=== PATIENT | male | born 1990 | race Caucasian/White ===

== ENCOUNTER 2017-02-28 20:51 | Emergency (ER) | payer OTHER ==
[2017-02-28 20:59] VITALS: BP 141/107
[2017-02-28] MEDS ORDERED: LORazepam 2 MG/ML MDV IVPUSH ONE (21:02)
[2017-02-28] MEDS ORDERED: Glucagon,Human Recombinant 1 MG Vial IVPUSH ONE (21:02)
[2017-02-28] MEDS ORDERED: Sodium Chloride 0.9% 10 ML Syringe FLUSH PRN (21:02)
--- NOTE | 2017-02-28 21:08 | EDM.PDOC ---
ED HPI GENERAL MEDICAL PROBLEM - General Chief Complaint: ENT Problem Stated Complaint: FOOD LODGED IN THROAT Time Seen by Provider: 02/28/17 20:58 Source of Information: Reports: Patient History Limitations: Reports: No Limitations - History of Present Illness INITIAL COMMENTS - FREE TEXT/NARRATIVE: The patient presents with a food bolus in his esophagus. He was eating steak tonight and it got stuck. He cannot drink any fluids. It comes right back up. He had this happen once last year in December where he came in to be evaluated. He was given ativan and glucagon and it passed. He had it happen a time before that but he did not need to be evaluated. He denies chest pain or abdominal pain. Onset: Sudden Duration: Minutes: Location: Reports: Other (Esophagus) Quality: Reports: Pressure Severity: Moderate Improves with: Reports: None Worsens with: Reports: None Context: Reports: Activity (He was eating steak) Associated Symptoms: Reports: No Other Symptoms - Related Data Allergies Allergy/AdvReac Type Severity Reaction Status Date / Time No Known Allergies Allergy Verified 12/31/15 21:01 Home Meds: Home Meds . [No Known Home Meds] 12/31/15 [History] Past Medical History Psychiatric History: Reports: ADHD Social & Family History - Family History Family Medical History: Noncontributory - Tobacco Use Smoking Status *Q: Never Smoker - Recreational Drug Use Recreational Drug Use: No ED ROS ENT - Review of Systems Review Of Systems: See Below Constitutional: Reports: No Symptoms HEENT: Reports: Other (Food bolus stuck in throat) Respiratory: Reports: No Symptoms Cardiovascular: Reports: No Symptoms Endocrine: Reports: No Symptoms GI/Abdominal: Reports: No Symptoms : Reports: No Symptoms Musculoskeletal: Reports: No Symptoms Skin: Reports: No Symptoms ED EXAM, ENT - Physical Exam Exam: See Below Exam Limited By: No Limitations General Appearance: Alert, No Apparent Distress Ears: Normal External Exam Nose: Normal Inspection Head: Atraumatic, Normocephalic Neck: Normal Inspection Respiratory/Chest: No Respiratory Distress, Lungs Clear, Normal Breath Sounds Cardiovascular: Regular Rate, Rhythm, No Edema, No Murmur GI/Abdominal: Soft, Non-Tender, No Organomegaly, No Mass Extremities: Normal Inspection Course - Vital Signs Last Recorded V/S: Last Vital Signs Temp 97.0 F 02/28/17 20:58 Pulse 63 02/28/17 20:58 Resp 20 02/28/17 20:58 BP 141/107 H 02/28/17 20:58 Pulse Ox 99 02/28/17 20:58 - Orders/Labs/Meds Orders: Active Orders 24 hr Category Date Time Status Peripheral IV Care [RC] . DIRECTED Care 02/28/17 21:02 Active Lactated Ringers [Ringers, Lactated] 1,000 ml Med 02/28/17 21:15 Active IV ASDIRECTED Sodium Chloride 0.9% [Saline Flush] Med 02/28/17 21:02 Active 10 ml FLUSH ASDIRECTED PRN Peripheral IV Insertion Adult [OM.PC] Routine Oth 02/28/17 21:02 Ordered Medication Orders Lactated Ringer's (Ringers, Lactated) 1,000 mls @ 150 mls/hr IV ASDIRECTED KLEBER Last Admin: 02/28/17 21:14 Dose: 150 mls/hr Sodium Chloride (Saline Flush) 10 ml FLUSH ASDIRECTED PRN PRN Reason: Keep Vein Open Last Admin: 02/28/17 21:17 Dose: 10 ml Meds: Medications Generic Name Dose Route Start Last Admin Trade Name Freq PRN Reason Stop Dose Admin Lactated Ringer's 1,000 mls @ 150 mls/hr 02/28/17 21:15 02/28/17 21:14 Ringers, Lactated IV 150 mls/hr ASDIRECTED KLEBER Administration Sodium Chloride 10 ml 02/28/17 21:02 02/28/17 21:17 Saline Flush FLUSH 10 ml ASDIRECTED PRN Administration Keep Vein Open Discontinued Medications Generic Name Dose Route Start Last Admin Trade Name Freq PRN Reason Stop Dose Admin Glucagon 1 mg 02/28/17 21:02 02/28/17 21:19 Glucagen IVPUSH 02/28/17 21:03 1 mg ONETIME ONE Administration Lorazepam 1 mg 02/28/17 21:02 02/28/17 21:14 Ativan IVPUSH 02/28/17 21:03 1 mg ONETIME ONE Administration - Re-Assessments/Exams Free Text/Narrative Re-Assessment/Exam: 02/28/17 21:07 I ordered an IV LR at 150mL/hr, ativan 1mg IV, and glucagon 1mg IV. 02/28/17 22:12 He drank some coke and it passed. I will discharge him home and follow up with Dr Foss. Departure - Departure Time of Disposition: 22:15 Disposition: Home, Self-Care 01 Condition: Good Clinical Impression: Impacted esophageal foreign body Qualifiers: Encounter type: initial encounter Qualified Code(s): T18.108A - Unspecified foreign body in esophagus causing other injury, initial encounter - Discharge Information Referrals: Roger Foss MD [Physician] - 1 Week Forms: ED Department Discharge Additional Instructions: Eat a soft diet for the next [address] Foss's office to make an appointment. Please return if you are worse. - My Orders Last 24 Hours: My Active Orders 02/28/17 21:02 Peripheral IV Care [RC] . DIRECTED Sodium Chloride 0.9% [Saline Flush] 10 ml FLUSH ASDIRECTED PRN Peripheral IV Insertion Adult [OM.PC] Routine 02/28/17 21:15 Lactated Ringers [Ringers, Lactated] 1,000 ml IV ASDIRECTED - Assessment/Plan Last 24 Hours: My Active Orders 02/28/17 21:02 Peripheral IV Care [RC] . DIRECTED Sodium Chloride 0.9% [Saline Flush] 10 ml FLUSH ASDIRECTED PRN Peripheral IV Insertion Adult [OM.PC] Routine 02/28/17 21:15 Lactated Ringers [Ringers, Lactated] 1,000 ml IV ASDIRECTED
[2017-02-28] MEDS ORDERED: Lactated Ringers 1,000 ML IV SCH (21:15)
== END 2017-02-28 22:35 | disposition home or self-care (01) ==
LOC: JD.ED 20:51
DX: T18.198A Other foreign object in esophagus causing other injury, initial encounter (principal)
CPT/HCPCS: 96361; 96374; 96375; 99283; J1610; J2060; J7050; J7120; 99284

== ENCOUNTER 2017-11-02 04:07 | Emergency (ER) | payer OTHER ==
[2017-11-02 04:15] VITALS: BP 157/105
[2017-11-02] MEDS ORDERED: Amoxicillin/Clavulanate K 500-125 MG Tab PO ONE (04:26)
[2017-11-02] MEDS ORDERED: Acetaminophen/oxyCODONE 325-5 MG Tab PO ONE (04:27)
[2017-11-02] MEDS ORDERED: Ondansetron 4 MG Tab.DIS PO ONE (04:27)
--- NOTE | 2017-11-02 04:32 | EDM.PDOC ---
ED HPI GENERAL MEDICAL PROBLEM - General Chief Complaint: ENT Problem Stated Complaint: COUGH EAR PAIN Time Seen by Provider: 11/02/17 04:18 Source of Information: Reports: Patient, Family (spouse) History Limitations: Reports: No Limitations - History of Present Illness INITIAL COMMENTS - FREE TEXT/NARRATIVE: 27-year-old male attends the ED due to severe pain left ear. This predated by a sore throat for the last 3 days and clogged up nose. Physical postnasal drip which is causing some degree of cough and sputum production. He did not feel he is coughing primarily however. His weight has been ill with cough and flulike symptoms for the last week. He still has his tonsils in place. Remember the last time that he would've had an ear infection. No drainage from the ear has been appreciated. His primarily in the left ear. It is also very painful to swallow. Onset: Gradual Onset Date: 10/30/17 (Sore throat started 3 days ago. Her pain developed overnight.) Duration: Day(s): Location: Reports: Face (Left earache sore throat) Quality: Reports: Burning, Sharp, Stabbing Severity: Severe (Pain is 8 out of 10.) Improves with: Reports: None Worsens with: Reports: Other. Denies: Movement Context: Reports: Sick Contact. Denies: Activity, Exercise (Swallowing makes it much worse), Lifting, Trauma, Other (If is been sick with upper respiratory tract infection) Associated Symptoms: Reports: Cough, Fever/Chills, Loss of Appetite, Malaise. Denies: No Other Symptoms, Confusion (Off mainly secondary postnasal drip), Chest Pain, cough w sputum, Diaphoresis, Headaches, Nausea/Vomiting, Rash, Seizure, Shortness of Breath, Syncope, Weakness Treatments IN HOME AIDE: Reports: NSAIDS Throat Pain Score (Numeric/FACES): 2 - Related Data Allergies Allergy/AdvReac Type Severity Reaction Status Date / Time No Known Allergies Allergy Verified 12/31/15 21:01 Home Meds: Home Meds Amoxicillin/Clavulanate K [Augmentin 500-125 MG] 1 tab PO BID #16 tablet [Rx] Loratadine/Pseudoephedrine [Claritin-D 24 Hour Tablet] 1 each PO DAILY #5 tab.er.24h 11/02/17 [Rx] oxyCODONE HCl/Acetaminophen [Percocet 5-325 mg Tablet] 1 - 2 each PO Q4H PRN # 16 tablet 11/02/17 [Rx] Past Medical History - Past Health History Medical/Surgical History: Denies Medical/Surgical History Psychiatric History: Reports: ADHD Social & Family History - Family History Family Medical History: Noncontributory - Tobacco Use Smoking Status *Q: Never Smoker - Caffeine Use Caffeine Use: Reports: Soda - Recreational Drug Use Recreational Drug Use: No - Living Situation & Occupation Living situation: Reports: Occupation: Employed ED ROS ENT - Review of Systems Review Of Systems: See Below Constitutional: Reports: Fever, Chills, Malaise, Weakness, Fatigue, Decreased Appetite, Weight Loss HEENT: Reports: Ear Pain, Throat Pain (Left ear pain see history present illness her throat pain 3 days.) Respiratory: Reports: Cough Cardiovascular: Reports: No Symptoms (Out cough) Endocrine: Reports: No Symptoms GI/Abdominal: Reports: Decreased Appetite : Reports: No Symptoms Musculoskeletal: Reports: No Symptoms Skin: Reports: No Symptoms Neurological: Reports: No Symptoms Psychiatric: Reports: No Symptoms ED EXAM, ENT - Physical Exam Exam: See Below Exam Limited By: No Limitations General Appearance: Alert, WD/WN, Mild Distress Eye Exam: Bilateral Eye: Normal Inspection Ears: TM Bulging (Left), TM Erythema, TM Fluid (Left), Other (Right tympanic membrane is normal.). No: TM Blood Mouth/Throat: Pharyngeal Erythema (Diffuse and severe), Tonsillar Erythema, Tonsillar Exudates, Tonsillar Swelling Head: Atraumatic, Normocephalic Neck: Normal Inspection, Supple, Non-Tender, Full Range of Motion, Lymphadenopathy (L). No: Lymphadenopathy (R) Respiratory/Chest: No Respiratory Distress, Normal Breath Sounds, No Accessory Muscle Use. No: Respiratory Distress, Rales, Rhonchi, Wheezing Cardiovascular: Normal Peripheral Pulses, Regular Rate, Rhythm, No Edema, No Murmur Course - Vital Signs Last Recorded V/S: Last Vital Signs Temp 36.1 C 11/02/17 04:13 Pulse 85 11/02/17 04:13 Resp 18 11/02/17 04:13 BP 157/105 H 11/02/17 04:13 Pulse Ox 96 11/02/17 04:13 - Orders/Labs/Meds Meds: Medications Discontinued Medications Generic Name Dose Route Start Last Admin Trade Name Lizz PRN Reason Stop Dose Admin Amoxicillin/Clavulanate Potassium 1 tab 11/02/17 04:26 11/02/17 04:31 Augmentin 500 Mg\125 Mg PO 11/02/17 04:27 1 tab ONETIME ONE Administration Ondansetron HCl 4 mg 11/02/17 04:27 11/02/17 04:31 Zofran Odt PO 11/02/17 04:28 4 mg ONETIME ONE Administration Oxycodone/Acetaminophen 2 tab 11/02/17 04:27 11/02/17 04:31 Percocet 325-5 Mg PO 11/02/17 04:28 2 tab ONETIME ONE Administration - Radiology Interpretation Free Text/Narrative:: 27-year-old male presents the ED due to sore throat 3 days and now developing severe left ear pain overnight. Unable to sleep due to the intensity of the pain. Described as sharp stabbing and constant throbbing. They're painful to swallow. Has been running a temperature 100.1 202. He will call production. Clinically does not appear to have influenza. Examination reveals a an acute left otitis media and evidence of tonsillitis pharyngitis. Plan treated with Augmentin 500 mg by mouth per ora now he will try and take 2 for the tablets as the day goes on today to try and bring the infection under rapid control. Claritin-D 24-hour release 1 tablet every morning for the next 5 days. Motrin 600 mg every 6 hours needed for fever or pain and inflammation relief. Percocet tabs 5/325-- 2 tablets given by mouth now for acute pain relief.16 tabs provided. Discharged home with a prescription for 16 more tablets. Given a note to excuse him from work for the next 2 days. Departure - Departure Time of Disposition: 04:32 Disposition: Home, Self-Care 01 Condition: Fair Clinical Impression: Tonsillitis with exudate, Streptococcal sore throat Otitis media Qualifiers: Otitis media type: suppurative Chronicity: acute Laterality: left Recurrence: not specified as recurrent Spontaneous tympanic membrane rupture: without spontaneous rupture Qualified Code(s): H66.002 - Acute suppurative otitis media without spontaneous rupture of ear drum, left ear - Discharge Information Prescriptions: Amoxicillin/Clavulanate K [Augmentin 500-125 MG] 1 tab PO BID #16 tablet Loratadine/Pseudoephedrine [Claritin-D 24 Hour Tablet] 1 each PO DAILY #5 tab.er.24h oxyCODONE HCl/Acetaminophen [Percocet 5-325 mg Tablet] 1 - 2 each PO Q4H PRN # 16 tablet PRN Reason: pain relief. Instructions: Tonsillitis, [id number], Strep Throat, [id number], Otitis Media, Adult Referrals: PCP,None [Primary Care Provider] - Forms: ED Department Discharge, ED Return to Work/School Form Additional Instructions: Evaluation in emergency him tonight in regards to severe sore throat 3 days with associated fever and now development of an an acute left otitis media for ear infection. Examination of your throat show evidence shows evidence of streptococcal infection with strep pharyngitis and tonsillitis. Treatment is to be Motrin 600 mg every 6 hours to reduce fever pain and inflammation in both ear and throat. Percocet tabs 5/3/25 milligrams one or 2 every 4-6 hours needed for pain relief not controlled by Motrin alone for the next few days until the antibiotics begin to work well. Antibiotics to be Augmentin 500 mg twice daily for the next 8 days to clear up both ear infection and tonsillitis. He should expect marked improvement over the next 36-48 hours. She'll tablets provided in the ED I would suggest second tablet around noon today and 30 tablet before going to bed tonight. Suggest use of Claritin-D 24-hour release 1 tablet in the morning for the next 5 days to act as a decongestant to get the fluid out of your left middle ear cavity. Watch hours also are somewhat helpful. Also hot fluids such as coffee or soup help decongest the nose and ears. Note given to excuse her from the work place for today and tomorrow due to current illness. Follow-up with personal physician if not markedly improved in 48-72 hours time
== END 2017-11-02 04:45 | disposition home or self-care (01) ==
LOC: JD.ED 04:07
DX: H66.002 Acute suppurative otitis media without spontaneous rupture of ear drum, left ear (principal); J02.0 Streptococcal pharyngitis; Z79.899 Other long term (current) drug therapy
CPT/HCPCS: 99283; A9270

== ENCOUNTER 2018-03-10 12:00 | Day surgery (SDC) | payer OTHER ==
[2018-03-10] MEDS ORDERED: LORazepam 2 MG/ML SDV IVPUSH ONE (12:33)
[2018-03-10] MEDS ORDERED: Glucagon,Human Recombinant 1 MG Vial IVPUSH ONE (12:33)
--- NOTE | 2018-03-10 14:12 | EDM.PDOC ---
ED HPI GENERAL MEDICAL PROBLEM - General Chief Complaint: Gastrointestinal Problem Stated Complaint: FB STUCK IN THROAT Time Seen by Provider: 03/10/18 12:42 Source of Information: Reports: Patient History Limitations: Reports: No Limitations - History of Present Illness INITIAL COMMENTS - FREE TEXT/NARRATIVE: 27-year-old male presents for evaluation and treatment of an impacted food bolus. Patient was reportedly eating a roast beef sandwich at lunch. States that the food became stuck. He is now unable to swallow his secretions. He is reporting discomfort in the substernal area. No coughing, chest pain, shortness of breath or vomiting. Review patient's records shows he has been seen in the ER on 2 other occasions for this. Both episodes resolved with glucagon and Ativan. He has never had an EGD done. Throat Pain Score (Numeric/FACES): 3 - Related Data Allergies Allergy/AdvReac Type Severity Reaction Status Date / Time No Known Allergies Allergy Verified 03/10/18 12:08 Home Meds: Home Meds . [No Known Home Meds] 03/10/18 [History] Past Medical History - Past Health History Medical/Surgical History: Denies Medical/Surgical History Psychiatric History: Reports: ADHD Social & Family History - Family History Family Medical History: Noncontributory - Tobacco Use Smoking Status *Q: Never Smoker - Caffeine Use Caffeine Use: Reports: Soda - Recreational Drug Use Recreational Drug Use: No - Living Situation & Occupation Living situation: Reports: Occupation: Employed ED ROS GENERAL - Review of Systems Review Of Systems: See Below HEENT: Reports: Other (unable to swallow secreations, reports feeling of impacted food bolus) Respiratory: Denies: Shortness of Breath, Cough Cardiovascular: Denies: Chest Pain GI/Abdominal: Denies: Vomiting ED EXAM, GI/ABD - Physical Exam Exam: See Below Exam Limited By: No Limitations General Appearance: Alert, WD/WN, No Apparent Distress Ears: Normal External Exam Nose: Normal Inspection Throat/Mouth: Normal Inspection, Normal Lips, Normal Voice, No Airway Compromise Respiratory/Chest: No Respiratory Distress, Lungs Clear, Normal Breath Sounds, Chest Non-Tender Cardiovascular: Normal Peripheral Pulses, Regular Rate, Rhythm, No Murmur Neurological: Alert, Oriented, Normal Cognition Psychiatric: Normal Affect, Normal Mood Skin Exam: Warm, Normal Color Course - Vital Signs Last Recorded V/S: Last Vital Signs Temp 97.2 F 03/10/18 16:40 Pulse 77 03/10/18 16:40 Resp 18 03/10/18 16:40 BP 129/83 03/10/18 16:40 Pulse Ox 98 03/10/18 16:40 - Orders/Labs/Meds Orders: Active Orders 24 hr Category Date Time Status Admission Status [Patient Status] [ADT] Routine ADT 03/10/18 14:13 Active Communication Order [RC] ROUTINE Care 03/10/18 15:28 Active Cooling Warming Measures [RC] ASDIRECTED Care 03/10/18 15:28 Active Notify Provider [RC] ASDIRECTED Care 03/10/18 15:28 Active Oxygen Therapy [RC] ASDIRECTED Care 03/10/18 15:28 Active Patient to Empty Bladder [RC] ASDIRECTED Care 03/10/18 14:35 Active Pulse Oximetry [RC] ASDIRECTED Care 03/10/18 15:28 Active Ready for Discharge [RC] PER UNIT ROUTINE Care 03/10/18 15:18 Active Verify Patient Consent Obtain [RC] ASDIRECTED Care 03/10/18 14:36 Active Vital Signs [RC] Q15M Care 03/10/18 15:29 Active Schedule Procedure [COMM] Stat Oth 03/10/18 14:13 Ordered Schedule Procedure [COMM] Urgent Oth 03/10/18 14:35 Ordered Resuscitation Status Routine Resus Stat 03/10/18 14:35 Ordered Meds: Medications Discontinued Medications Generic Name Dose Route Start Last Admin Trade Name Jean Carlosq PRN Reason Stop Dose Admin Dexamethasone Confirm 03/10/18 14:39 Dexamethasone Administered 03/10/18 14:40 Dose 4 mg .ROUTE .STK-MED ONE Diphenhydramine HCl 25 mg 03/10/18 15:29 Benadryl IVPUSH Q6H PRN Pruritis Fentanyl Confirm 03/10/18 14:34 Sublimaze Administered 03/10/18 14:35 Dose 100 mcg .ROUTE .STK-MED ONE Fentanyl 50 mcg 03/10/18 15:29 Sublimaze IVPUSH Q5M PRN Pain Glucagon 1 mg 03/10/18 12:33 03/10/18 12:41 Glucagen IVPUSH 03/10/18 12:34 1 mg ONETIME ONE Administration Lactated Ringer's Confirm 03/10/18 14:27 Ringers, Lactated Administered 03/10/18 14:28 Dose 1,000 mls @ as directed .ROUTE .STK-MED ONE Sodium Chloride 1,000 mls @ 125 mls/hr 03/10/18 14:45 Normal Saline IV ASDIRECTED KLEBER Lidocaine HCl Confirm 03/10/18 14:39 Xylocaine-Mpf 1% Administered 03/10/18 14:40 Dose 4 mls @ as directed .ROUTE .STK-MED ONE Lorazepam 1 mg 03/10/18 12:33 03/10/18 12:40 Ativan IVPUSH 03/10/18 12:34 1 mg ONETIME ONE Administration Meperidine HCl 12.5 mg 03/10/18 15:29 Demerol IVPUSH ONETIME PRN Shivering Midazolam HCl Confirm 03/10/18 14:34 Versed 1 Mg/Ml Administered 03/10/18 14:35 Dose 2 mg .ROUTE .STK-MED ONE Ondansetron HCl Confirm 03/10/18 14:39 Zofran Administered 03/10/18 14:40 Dose 4 mg .ROUTE .STK-MED ONE Ondansetron HCl 4 mg 03/10/18 15:29 Zofran IVPUSH ONETIME PRN Nausea/Vomiting Propofol Confirm 03/10/18 14:34 Diprivan 20 Ml Administered 03/10/18 14:35 Dose 200 mg .ROUTE .STK-MED ONE Succinylcholine Chloride Confirm 03/10/18 14:39 Succinylcholine In Ns Pf Administered 03/10/18 14:40 Dose 100 mg .ROUTE .STK-MED ONE - Re-Assessments/Exams Free Text/Narrative Re-Assessment/Exam: 03/10/18 14:19 Glucagon and Ativan have been unsuccessful. Continues to spit up secretions. Discussed case with Dr. Foss. He will come into the ER and examine the patient and plan taken to the OR for removal of impacted food bolus. Departure - Departure Time of Disposition: 14:30 Disposition: DC/Tfer to Critical Access 66 Condition: Fair Clinical Impression: Food impaction of esophagus Qualifiers: Encounter type: initial encounter Qualified Code(s): T18.128A - Food in esophagus causing other injury, initial encounter - Discharge Information - My Orders Last 24 Hours: My Active Orders 03/10/18 14:13 Admission Status [Patient Status] [ADT] Routine Schedule Procedure [COMM] Stat - Assessment/Plan Last 24 Hours: My Active Orders 03/10/18 14:13 Admission Status [Patient Status] [ADT] Routine Schedule Procedure [COMM] Stat
[2018-03-10] MEDS ORDERED: Lactated Ringers 1,000 ML ONE (14:27)
--- NOTE | 2018-03-10 14:29 | PCM.PREANE ---
Preanesthetic Assessment - Anesthesia/Transfusion/Family Hx Anesthesia History: Prior Anesthesia Without Reaction Family History of Anesthesia Reaction: No Transfusion History: No Prior Transfusion(s) - Review of Systems General: No Symptoms Pulmonary: No Symptoms Cardiovascular: No Symptoms Gastrointestinal: No Symptoms Neurological: No Symptoms Other: Reports: None - Physical Assessment NPO Status Date: 03/10/18 NPO Status Time: 11:30 O2 Sat by Pulse Oximetry: 98 Respiratory Rate: 16 Vital Signs: Last Vital Signs Temp 36.5 C 03/10/18 12:05 Pulse 92 03/10/18 12:05 Resp 16 03/10/18 12:05 BP 164/89 H 03/10/18 12:05 Pulse Ox 98 03/10/18 12:05 Height: 1.78 m Weight: 86.183 kg ASA Class: 1 Mental Status: Alert & Oriented x3 Dentition: Reports: Broken Tooth/Teeth (top left molar cracked ) Thyro-Mental Finger Breadths: 3 Mouth Opening Finger Breadths: 3 ROM/Head Extension: Full Lungs: Clear to Auscultation, Normal Respiratory Effort Cardiovascular: Regular Rate, Regular Rhythm - Allergies Allergies/Adverse Reactions: Allergies Allergy/AdvReac Type Severity Reaction Status Date / Time No Known Allergies Allergy Verified 03/10/18 12:08 - Blood Blood Available: No Product(s) Available: None - Anesthesia Plan Pre-Op Medication Ordered: None - Acknowledgements Anesthesia Type Planned: General Anesthesia Pt an Appropriate Candidate for the Planned Anesthesia: Yes Alternatives and Risks of Anesthesia Discussed w Pt/Guardian: Yes Pt/Guardian Understands and Agrees with Anesthesia Plan: Yes PreAnesthesia Questionnaire - Past Health History Medical/Surgical History: Denies Medical/Surgical History Psychiatric History: Reports: ADHD - SUBSTANCE USE Smoking Status *Q: Never Smoker Second Hand Smoke Exposure: No Recreational Drug Use History: No - HOME MEDS Home Medications: Home Meds . [No Known Home Meds] 03/10/18 [History] - CURRENT (IN HOUSE) MEDS Current Meds: Current Medications Discontinued Medications Glucagon (Glucagen) 1 mg IVPUSH ONETIME ONE Stop: 03/10/18 12:34 Last Admin: 03/10/18 12:41 Dose: 1 mg Lorazepam (Ativan) 1 mg IVPUSH ONETIME ONE Stop: 03/10/18 12:34 Last Admin: 03/10/18 12:40 Dose: 1 mg
[2018-03-10] MEDS ORDERED: fentaNYL 100 MCG/2 ML SDV ONE (14:34)
[2018-03-10] MEDS ORDERED: Propofol 200 MG/20 ML SDV ONE (14:34)
[2018-03-10] MEDS ORDERED: Midazolam 1 MG/ML 2 ML SDV ONE (14:34)
[2018-03-10] MEDS ORDERED: Dexamethasone 4 MG/ML SDV ONE (14:39)
[2018-03-10] MEDS ORDERED: Ondansetron 4 MG/2 ML SDV ONE (14:39)
[2018-03-10] MEDS ORDERED: Succinylcholine/Normal Saline 100 MG/5 ML Syringe ONE (14:39)
[2018-03-10] MEDS ORDERED: Lidocaine 1% 4 ML ONE (14:39)
--- NOTE | 2018-03-10 14:41 | PCM.HP ---
H&P History of Present Illness - General Date of Service: 03/10/18 Admit Problem/Dx: Admission Diagnosis/Problem Admission Diagnosis/Problem Foreign body in esophagus - History of Present Illness Initial Comments - Free Text/Narative: 27-year-old male was in his usual state of excellent health until about 2 hours ago when he ate a roast beef sandwich became stuck in his esophagus. Since that time he's been unable to swallow his saliva and is regurgitating. He has no neck pain or chest pain at this time. He doesn't give a classic history of reflux symptoms it on the other hand he said he's had peak meat stick in his esophagus on 2 previous occasions in the last one was about a year ago. He's never had a previous upper endoscopy. He was seen by staff here in the ED who medically tried to relieve the obstruction without success and I was called to evaluate him for endoscopy. Throat Pain Score (Numeric/FACES): 3 - Related Data Allergies/Adverse Reactions: Allergies Allergy/AdvReac Type Severity Reaction Status Date / Time No Known Allergies Allergy Verified 03/10/18 12:08 Home Medications: Home Meds . [No Known Home Meds] 03/10/18 [History] Past Medical History - Past Health History Medical/Surgical History: Denies Medical/Surgical History Psychiatric History: Reports: ADHD Social & Family History - Family History Family Medical History: Noncontributory - Tobacco Use Smoking Status *Q: Never Smoker Second Hand Smoke Exposure: No - Caffeine Use Caffeine Use: Reports: Soda - Recreational Drug Use Recreational Drug Use: No - Living Situation & Occupation Living situation: Reports: Occupation: Employed H&P Review of Systems - Review of Systems: Review Of Systems: ROS reveals no pertinent complaints other than HPI. Exam - Exam Exam: See Below - Vital Signs Vital Signs: Last Vital Signs Temp 36.5 C 03/10/18 12:05 Pulse 92 03/10/18 12:05 Resp 16 03/10/18 14:31 BP 164/89 H 03/10/18 12:05 Pulse Ox 98 03/10/18 14:31 Weight: 86.183 kg - Exam General: Alert, Oriented, Cooperative HEENT: EOMI, Hearing Intact Neck: Supple, Trachea Midline, Full Range of Motion Lungs: Clear to Auscultation, Normal Respiratory Effort Cardiovascular: Regular Rate, Regular Rhythm, Normal S1, Normal S2 GI/Abdominal Exam: Soft, Non-Tender (Male) Exam: Deferred Rectal (Males) Exam: Deferred Back Exam: Normal Inspection Skin: Warm, Dry, Intact Neuro Extensive - Mental Status: Alert, Oriented x3, Normal Mood/Affect, Normal Cognition Psychiatric: Alert, Normal Affect, Normal Mood - Problem List (1) Food impaction of esophagus SNOMED Code(s): 4591782, [id number] ICD Code: T18.128A - FOOD IN ESOPHAGUS CAUSING OTHER INJURY, INITIAL ENCOUNTER Status: Acute Priority: High Current Visit: No Qualifiers: Encounter type: initial encounter Qualified Code(s): T18.128A - Food in esophagus causing other injury, initial encounter Problem List Initiated/Reviewed/Updated: Yes Orders Last 24hrs: Active Orders 24 hr Category Date Time Status Admission Status [Patient Status] [ADT] Routine ADT 03/10/18 14:13 Active Patient to Empty Bladder [RC] ASDIRECTED Care 03/10/18 14:35 Ordered Verify Patient Consent Obtain [RC] ASDIRECTED Care 03/10/18 14:36 Ordered Nothing Per Oral Diet [DIET] Diet 03/10/18 Lunch Ordered Sodium Chloride 0.9% @ 125 MLS/HR (1000ml) Med 03/10/18 14:45 Ordered Sodium Chloride 0.9% [Normal Saline] 1,000 ml IV ASDIRECTED Schedule Procedure [COMM] Stat Oth 03/10/18 14:13 Ordered Schedule Procedure [COMM] Urgent Oth 03/10/18 14:35 Ordered Resuscitation Status Routine Resus Stat 03/10/18 14:35 Ordered Assessment/Plan Comment:: Esophageal meat impaction refractory to medical therapy. Would benefit from endoscopy with disimpaction. Plan: Endoscopic esophageal meat disimpaction. Esophageal biopsies as well. The benefits and risks of the procedure were explained to the patient as well as the alternatives. He wants to proceed as soon as possible.
[2018-03-10] MEDS ORDERED: Sodium Chloride 0.9% 1,000 ML IV SCH (14:45)
--- NOTE | 2018-03-10 15:25 | PCM.OPNOTE ---
- General Post-Op/Procedure Note Date of Surgery/Procedure: 03/10/18 Operative Procedure(s): Endoscopic esophageal meat disimpaction with GE junction biopsy and esophageal body biopsy at 20 cm Findings: Roast beef chips within the body of the esophagus. There appeared to be some slight trachealization of the esophagus which is suggestive of eosinophilic esophagitis.. There were no eugene strictures or stenoses seen. There was no evidence of chronic esophagitis. There was a large amount of food within the stomach. The duodenum was grossly normal. Pre Op Diagnosis: Esophageal meat impaction Post-Op Diagnosis: 1. Same. 2. Rule out eosinophilic esophagitis Anesthesia Technique: MAC, Moderate Sedation Primary Surgeon: Roger Foss Pathology: GE junction biopsy and esophageal biopsy at 20 cm EBL in mLs: 0 Complications: None Condition: Stable Free Text/Narrative:: After adequate general endotracheal tube anesthesia was obtained a lubricated upper endoscope was inserted through a bite-block easily into the esophagus. The scope was advanced under direct vision and quickly ran into slices of beef impacting the distal esophagus. There was a fair amount of saliva just above this. I aspirated the saliva. I then able was able to navigate the scope around the roast beef into the body of the stomach. This pushed about half of the katherine beef into the stomach. The other half was then pushed into the stomach after withdrawing the scope somewhat and proceeding forward once again. Within the stomach there was a large amount of food and saliva. The scope was then introduced towards the antrum and through the pylorus and then into the duodenum. These areas were endoscopically normal however fine mucosal detail couldn't be seen because of the food. In the retroflexed view there is a large amount of food within the stomach. I couldn't see a hiatal hernia. The scope was then withdrawn to the GE junction where there were no eugene stenoses valves or rings. I took a random biopsy for histologic review despite the absence of inflammatory changes. I then withdrew the scope to the body of the esophagus and then irrigated out the remaining small pieces of roast beef. This was done until the esophagus was clear. I then biopsied one of the suspicious rings for histologic review. Air was removed as I finished the procedure which he tolerated well. Pack Room Operator photographs were taken for the patient and for the medical record. There were no complications.
--- NOTE | 2018-03-10 15:27 | PCM.POSTAN ---
POST ANESTHESIA ASSESSMENT - MENTAL STATUS Mental Status: Somnolent - VITAL SIGNS Pulse Rate: 75 SaO2: 99 Resp Rate: 14 Blood Pressure: 142/94 Temperature: 36.6 C - RESPIRATORY Respiratory Status: Respiratory Rate WNL, Airway Patent, O2 Saturation Stable - CARDIOVASCULAR CV Status: Pulse Rate WNL, Blood Pressure Stable - GASTROINTESTINAL GI Status: No Symptoms - PAIN Pain Score: 0 - POST OP HYDRATION Hydration Status: Adequate & Stable
[2018-03-10] MEDS ORDERED: Ondansetron 4 MG/2 ML SDV IVPUSH PRN (15:29)
[2018-03-10] MEDS ORDERED: diphenhydrAMINE 50 MG/ML SDV IVPUSH PRN (15:29)
[2018-03-10] MEDS ORDERED: Meperidine PF 50 MG/ML Syringe IVPUSH PRN (15:29)
[2018-03-10] MEDS ORDERED: fentaNYL 100 MCG/2 ML SDV IVPUSH PRN (15:29)
--- NOTE | 2018-03-10 15:37 | PCM48HPAN ---
Post Anesthesia Note - EVALUATION WITHIN 48HRS OF ANESTHETIC Vital Signs in Normal Range: Yes Patient Participated in Evaluation: Yes Respiratory Function Stable: Yes Airway Patent: Yes Cardiovascular Function Stable: Yes Hydration Status Stable: Yes Pain Control Satisfactory: Yes Nausea and Vomiting Control Satisfactory: Yes Mental Status Recovered: Yes
[2018-03-10 16:52] VITALS: BP 129/83
== END 2018-03-10 16:48 | disposition home or self-care (01) ==
LOC: JD.ED 12:00 → JD.SDS 14:15
PROVIDERS: ATTEND Surgery
DX: T18.128A Food in esophagus causing other injury, initial encounter (principal); K20.0 Eosinophilic esophagitis; F90.9 Attention-deficit hyperactivity disorder, unspecified type; X58.XXXA Exposure to other specified factors, initial encounter
CPT/HCPCS: 43239; 43247; 96374; 96375; 99284; J0330; J1100; J1610; J2060; J2250; J2405; J2704; J3010; 00731; J2001

== ENCOUNTER 2021-07-22 12:04 | Emergency (ER) | payer OTHER ==
[2021-07-22 12:28] VITALS: BP 134/87; PULSE 90
[2021-07-22 13:04] LABS: CORONAVIRUS COVID-19 NAA NEGATIVE (NEGATIVE)
--- NOTE | 2021-07-22 13:09 | EDM.PDOC ---
ED HPI GENERAL MEDICAL PROBLEM - General Chief Complaint: Respiratory Problem Stated Complaint: SOB\VOMITING Time Seen by Provider: 07/22/21 12:18 Source of Information: Reports: Patient, RN Notes Reviewed History Limitations: Reports: No Limitations - History of Present Illness INITIAL COMMENTS - FREE TEXT/NARRATIVE: Patient is a 30-year-old male presenting to the emergency department with complaints of diarrhea, vomiting, shortness of breath. Reports that around 330 this morning he awoke with diarrhea. He is also had 2 episodes of diarrhea. Reports that around 1130 this morning he was lying down he began to feel short of breath. States it was difficult to take a full breath. He also had tingling in his hands and feet. This lasted approximately 1 hour, but resolved while he was in the waiting room. He denies any chest pain, fever, cough, or abdominal pain. He received 2 doses of [employer] vaccination in December. - Related Data Allergies Allergy/AdvReac Type Severity Reaction Status Date / Time No Known Allergies Allergy Verified 03/10/18 12:08 Home Meds: Home Meds Metoprolol Succinate 25 mg PO DAILY 07/22/21 [History] Ondansetron [Zofran ODT] 4 mg PO Q6H PRN #10 tab.dis 07/22/21 [Rx] Past Medical History - Past Health History Medical/Surgical History: Denies Medical/Surgical History Cardiovascular History: Reports: Hypertension Psychiatric History: Reports: ADHD - Infectious Disease History Infectious Disease History: Reports: None Social & Family History - Family History Family Medical History: No Pertinent Family History - Tobacco Use Tobacco Use Status *Q: Never Tobacco User - Caffeine Use Caffeine Use: Reports: Coffee, Energy Drinks, Soda - Recreational Drug Use Recreational Drug Use: No - Living Situation & Occupation Living situation: Reports: Occupation: Employed ED ROS GENERAL - Review of Systems Review Of Systems: See Below Constitutional: Reports: No Symptoms. Denies: Fever, Chills, Weakness HEENT: Reports: No Symptoms Respiratory: Reports: Shortness of Breath. Denies: Wheezing, Cough Cardiovascular: Reports: No Symptoms. Denies: Chest Pain, Lightheadedness, Palpitations Endocrine: Reports: No Symptoms GI/Abdominal: Reports: Diarrhea, Vomiting. Denies: Abdominal Pain : Reports: No Symptoms Musculoskeletal: Reports: No Symptoms Skin: Reports: No Symptoms Neurological: Reports: No Symptoms. Denies: Confusion, Dizziness, Headache Psychiatric: Reports: No Symptoms Hematologic/Lymphatic: Reports: No Symptoms Immunologic: Reports: No Symptoms ED EXAM, GENERAL - Physical Exam Exam: See Below Exam Limited By: No Limitations General Appearance: Alert, WD/WN, No Apparent Distress Respiratory/Chest: No Respiratory Distress, Lungs Clear, Normal Breath Sounds, No Accessory Muscle Use, Chest Non-Tender Cardiovascular: Normal Peripheral Pulses, Regular Rate, Rhythm, No Edema, No Gallop, No JVD, No Murmur, No Rub GI/Abdominal: Normal Bowel Sounds, Soft, Non-Tender, No Organomegaly, No Distention, No Abnormal Bruit, No Mass Neurological: Alert, Oriented, CN II-XII Intact, Normal Cognition, Normal Gait, Normal Reflexes, No Motor/Sensory Deficits Psychiatric: Normal Affect, Normal Mood Skin Exam: Warm, Dry, Intact, Normal Color, No Rash #1 Interpretation EKG Date: 07/22/21 Time: 12:38 Rhythm: NSR Rate (Beats/Min): 104 [place]: Normal P-Wave: Present QRS: Normal ST-T: Normal QT: Normal Course - Vital Signs Last Recorded V/S: Last Vital Signs Temp 98.1 F 07/22/21 12:26 Pulse 90 07/22/21 12:26 Resp 20 07/22/21 12:26 BP 134/87 07/22/21 12:26 Pulse Ox 96 07/22/21 12:26 - Orders/Labs/Meds Labs: Laboratory Tests 07/22/21 07/22/21 07/22/21 Range/Units 12:15 12:45 12:45 WBC 11.73 H (4.23-9.07) K/mm3 RBC 5.96 (4.63-6.08) M/mm3 Hgb 17.6 H (13.7-17.5) gm/dl Hct 51.5 H (40.1-51.0) % MCV 86.4 (79.0-92.2) fl MCH 29.5 (25.7-32.2) pg MCHC 34.2 (32.2-35.5) g/dl RDW Std Deviation 42.1 (35.1-43.9) fL Plt Count 294 (163-337) K/mm3 MPV 9.4 (9.4-12.3) fl Neut % (Auto) 88.9 H (34.0-67.9) % Lymph % (Auto) 3.3 L (21.8-53.1) % Benzie % (Auto) 6.0 (5.3-12.2) % Eos % (Auto) 1.4 (0.8-7.0) Baso % (Auto) 0.2 (0.1-1.2) % Neut # (Auto) 10.43 H (1.78-5.38) K/mm3 Lymph # (Auto) 0.39 L (1.32-3.57) K/mm3 Benzie # (Auto) 0.70 (0.30-0.82) K/mm3 Eos # (Auto) 0.17 (0.04-0.54) K/mm3 Baso # (Auto) 0.02 (0.01-0.08) K/mm3 D-Dimer, Quantitative < 0.19 L (0.19-0.50) mg/L Sodium (136-145) mEq/L Potassium (3.5-5.1) mEq/L Chloride (98-107) mEq/L Carbon Dioxide (21-32) mEq/L Anion Gap (5-15) BUN (7-18) mg/dL Creatinine (0.7-1.3) mg/dL Est Cr Clr Drug Dosing mL/min Estimated GFR (MDRD) (>60) mL/min BUN/Creatinine Ratio (14-18) Glucose (70-99) mg/dL Calcium (8.5-10.1) mg/dL Total Bilirubin (0.2-1.0) mg/dL AST (15-37) U/L ALT (16-63) U/L Alkaline Phosphatase (46-116) U/L Troponin I (0.00-0.056) ng/mL Total Protein (6.4-8.2) g/dl Albumin (3.4-5.0) g/dl Globulin gm/dL Albumin/Globulin Ratio (1-2) Influenza Type A RNA Negative (NEGATIVE) Influenza Type B RNA Negative (NEGATIVE) SARS-CoV-2 RNA (CARI) Negative (NEGATIVE) 07/22/21 Range/Units 12:45 WBC (4.23-9.07) K/mm3 RBC (4.63-6.08) M/mm3 Hgb (13.7-17.5) gm/dl Hct (40.1-51.0) % MCV (79.0-92.2) fl MCH (25.7-32.2) pg MCHC (32.2-35.5) g/dl RDW Std Deviation (35.1-43.9) fL Plt Count (163-337) K/mm3 MPV (9.4-12.3) fl Neut % (Auto) (34.0-67.9) % Lymph % (Auto) (21.8-53.1) % Benzie % (Auto) (5.3-12.2) % Eos % (Auto) (0.8-7.0) Baso % (Auto) (0.1-1.2) % Neut # (Auto) (1.78-5.38) K/mm3 Lymph # (Auto) (1.32-3.57) K/mm3 Benzie # (Auto) (0.30-0.82) K/mm3 Eos # (Auto) (0.04-0.54) K/mm3 Baso # (Auto) (0.01-0.08) K/mm3 D-Dimer, Quantitative (0.19-0.50) mg/L Sodium 137 (136-145) mEq/L Potassium 4.1 (3.5-5.1) mEq/L Chloride 102 (98-107) mEq/L Carbon Dioxide 27 (21-32) mEq/L Anion Gap 12.1 (5-15) BUN 15 (7-18) mg/dL Creatinine 1.2 (0.7-1.3) mg/dL Est Cr Clr Drug Dosing 91.25 mL/min Estimated GFR (MDRD) > 60 (>60) mL/min BUN/Creatinine Ratio 12.5 L (14-18) Glucose 123 H (70-99) mg/dL Calcium 9.3 (8.5-10.1) mg/dL Total Bilirubin 1.0 (0.2-1.0) mg/dL AST 22 (15-37) U/L ALT 52 (16-63) U/L Alkaline Phosphatase 85 (46-116) U/L Troponin I < 0.017 (0.00-0.056) ng/mL Total Protein 8.7 H (6.4-8.2) g/dl Albumin 4.6 (3.4-5.0) g/dl Globulin 4.1 gm/dL Albumin/Globulin Ratio 1.1 (1-2) Influenza Type A RNA (NEGATIVE) Influenza Type B RNA (NEGATIVE) SARS-CoV-2 RNA (CARI) (NEGATIVE) - Re-Assessments/Exams Free Text/Narrative Re-Assessment/Exam: Patient is a 30-year-old male presenting to the emergency department with complaints of vomiting, diarrhea, and shortness of breath. Symptoms of diarrhea began around 0330 this morning with vomiting later in the morning. Around 1130 he sprints approxi-1 hour of shortness of breath which resolved while he was in the waiting room. He described it as being difficult to take a deep breath. He had some tingling in his hands and feet as well. Patient denies any symptoms at the time of my exam. Exam is unremarkable. Lung sounds are clear to auscultation. Vital signs on triage were normal. I have ordered blood work, EKG, chest x-ray, Covid/influenza testing. 07/22/21 14:29 Hematology significant for WBC minimally elevate 11.73. D-dimer and troponin are undetectably low. Covid and influenza are negative. Chest x-ray shows no acute abnormalities. EKG shows no evidence of acute ischemia. Results discussed with patient. Likely suffering from viral gastroenteritis. I will send prescription for Zofran for nausea. Discussed return precautions. Discharge instructions as documented. Departure - Departure Time of Disposition: 14:29 Disposition: Home, Self-Care 01 Condition: Good Clinical Impression: Viral gastroenteritis - Discharge Information *PRESCRIPTION DRUG MONITORING PROGRAM REVIEWED*: No *COPY OF PRESCRIPTION DRUG MONITORING REPORT IN PATIENT MACO: No Prescriptions: Ondansetron [Zofran ODT] 4 mg PO Q6H PRN #10 tab.dis PRN Reason: Nausea/Vomiting Instructions: Viral Gastroenteritis, Adult Referrals: Zane Talbot MD [Primary Care Provider] - Forms: ED Department Discharge Additional Instructions: Use Zofran as prescribed for nausea. Clear liquid diet for the next 24 to 72 hours and then advance as tolerated. You should develop any new or worsening symptoms of concern, please do not hesitate to return to the emergency department for reevaluation. Sepsis Event Note (ED) - Focused Exam Vital Signs: Vital Signs Temp Pulse Resp BP Pulse Ox 07/22/21 12:26 98.1 F 90 20 134/87 96
--- NOTE | 2021-07-22 13:57 | CR ---
Chest: Portable view of the chest was obtained. Comparison: No prior chest imaging is available. Heart size and mediastinum are normal. Lungs are clear with no acute parenchymal change. Bony structures show nothing acute. Impression: 1. Nothing acute is seen on portable chest x-ray. Diagnostic code #1
== END 2021-07-22 15:00 | disposition home or self-care (01) ==
LOC: JD.ED 12:04
DX: A08.4 Viral intestinal infection, unspecified (principal); I10 Essential (primary) hypertension; Z79.899 Other long term (current) drug therapy; Z20.822 Contact with and (suspected) exposure to COVID-19
CPT/HCPCS: 0240U; 36415; 71045; 80053; 84484; 85025; 85379; 93005; 99284

== ENCOUNTER 2021-11-04 20:32 | Day surgery (SDC) | payer OTHER ==
[2021-11-04] MEDS ORDERED: Glucagon,Human Recombinant 1 MG Vial IVPUSH ONE (21:38)
[2021-11-04] MEDS ORDERED: Sodium Chloride 0.9% 10 ML Syringe FLUSH PRN (21:39)
[2021-11-04] MEDS ORDERED: LORazepam 2 MG/ML SDV IVPUSH STA (22:18)
[2021-11-04] MEDS ORDERED: Diltiazem 50 MG/10 ML SDV IVPUSH STA (22:23)
[2021-11-04] MEDS ORDERED: Ondansetron 4 MG/2 ML SDV ONE (23:10)
[2021-11-04] MEDS ORDERED: fentaNYL 250 MCG/5 ML SDV ONE (23:10)
[2021-11-04] MEDS ORDERED: Midazolam 1 MG/ML 2 ML SDV ONE (23:10)
[2021-11-04] MEDS ORDERED: Propofol 200 MG/20 ML SDV ONE (23:10)
[2021-11-04] MEDS ORDERED: Lidocaine 1% 4 ML ONE (23:10)
[2021-11-04] MEDS ORDERED: Succinylcholine/Sod PF 100 MG/5 ML SYRINGE IV ONE (23:10)
[2021-11-04] MEDS ORDERED: Dexamethasone 4 MG/ML 5 ML MDV ONE (23:47)
[2021-11-04] MEDS ORDERED: fentaNYL 100 MCG/2 ML SDV IVPUSH PRN (23:58)
[2021-11-04] MEDS ORDERED: Ondansetron 4 MG/2 ML SDV IVPUSH PRN (23:58)
[2021-11-04] MEDS ORDERED: HYDROmorphone 0.5 MG/0.5 ML Syringe IVPUSH PRN (23:58)
[2021-11-05] MEDS ORDERED: ePHEDrine 50 MG/ML SDV ONE (00:09)
[2021-11-05 01:15] VITALS: BP 151/103; PULSE 89
== END 2021-11-05 05:55 | disposition home or self-care (01) ==
LOC: JD.ED 20:32 → JD.SDS 22:59 → JD.MS 11-05 01:57 → JD.SDS 11-05 05:55
PROVIDERS: ATTEND Surgery
DX: T18.128A Food in esophagus causing other injury, initial encounter (principal); K22.2 Esophageal obstruction; I10 Essential (primary) hypertension; K21.9 Gastro-esophageal reflux disease without esophagitis; Z98.890 Other specified postprocedural states
CPT/HCPCS: 43247; 96374; 96375; 99284; J0330; J1100; J1610; J2060; J2250; J2405; J2704; J3010; J3490; 00731; 99140; 99285

== ENCOUNTER 2023-08-03 22:44 | Inpatient (IN) | payer BC, OTHER ==
[2023-08-03] MEDS ORDERED: Sodium Chloride 0.9% 10 ML Syringe FLUSH PRN (22:53)
[2023-08-03 23:31] LABS: BASOPHILS ABSOLUTE AUTO 0.1 K/mm3 (0.0-0.2); BASOPHILS PERCENT AUTO 0.5 % (0.0-1.0); EOSINOPHILS ABSOLUTE AUTO 0.2 K/mm3 (0.0-0.4); EOSINOPHILS PERCENT AUTO 1.5 % (0.0-6.0); IMMATURE GRAN ABSOLUTE AUTO 0.05 K/mm3 (0.00-0.05); IMMATURE GRAN PERCENT AUTO 0.3 % (0.0-0.4); LYMPHOCYTES ABSOLUTE AUTO 1.2 K/mm3 (1.0-4.8); LYMPHOCYTES PERCENT AUTO 8.3 % (24.0-44.0); MEAN CORPUSCULAR HEMOGLOBIN 30.2 pg (28.0-32.0); MEAN CORPUSCULAR HGB CONC 35.4 g/dl (32.0-36.0); MEAN CORPUSCULAR VOLUME 85.3 fl (83.0-99.0); MEAN PLATELET VOLUME 9.1 fl (9.4-12.4); MONOCYTES ABSOLUTE AUTO 0.8 K/mm3 (0.0-0.8); MONOCYTES PERCENT AUTO 5.6 % (0.0-8.0); NEUTROPHILS ABSOLUTE AUTO 12.5 K/mm3 (1.8-7.7); NEUTROPHILS PERCENT AUTO 83.8 % (41.0-71.0); PLATELET COUNT,PLT 323 K/mm3 (150-400); RED BLOOD CELL COUNT 5.63 M/mm3 (4.52-5.90); WHITE BLOOD CELL COUNT,WBC 14.89 K/mm3 (3.9-11.3)
[2023-08-03 23:54] LABS: A/G RATIO 1.1 (1-2); ALBUMIN 4.2 g/dl (3.4-5.0); ANION GAP 10.8 (5-15); BILIRUBIN TOTAL 0.7 mg/dL (0.2-1.0); BUN/CREATININE RATIO 11.4 (14-18); CALCIUM 9.8 mg/dL (8.5-10.1); CREATININE 1.4 mg/dL (0.7-1.3); EST CRCL DRUG DOSING (CG) 74.35 mL/min; POTASSIUM,K 3.8 mEq/L (3.5-5.1); PROTEIN TOTAL,TP 8.2 g/dl (6.4-8.2)
[2023-08-04] MEDS ORDERED: Morphine 4 MG/ML Syringe IVPUSH ONE (00:03)
[2023-08-04] MEDS ORDERED: Naloxone 0.4 MG/ML SDV IVPUSH PRN (00:03)
[2023-08-04] MEDS ORDERED: Lactated Ringers 1,000 ML IV ONE (00:04)
[2023-08-04] MEDS ORDERED: Ondansetron 8 MG in Sodium Chloride 0.9% 50 ML IV ONE (00:04)
[2023-08-04] MEDS ORDERED: Iopamidol 612 MG/ML 100 ML Bottle IVPUSH ONE (00:15)
[2023-08-04] MEDS ORDERED: Morphine 4 MG/ML Syringe IVPUSH PRN (04:18)
[2023-08-04] MEDS ORDERED: D5 1/2 NS w/ 20 mEq/L KCl 1,000 ML IV SCH (04:30)
[2023-08-04] MEDS ORDERED: Ondansetron 4 MG/2 ML SDV IVPUSH PRN (04:30)
[2023-08-04] MEDS ORDERED: Acetaminophen 650 MG Supp RECTAL PRN (04:34)
[2023-08-04] MEDS ORDERED: Piperacillin/Tazobactam 4.5 GM in Sodium Chloride 0.9% 100 ML IV ONE (04:45)
[2023-08-04 09:16] LABS: BASOPHILS PERCENT AUTO 0.3 % (0.0-1.0); EOSINOPHILS ABSOLUTE AUTO 0.3 K/mm3 (0.0-0.4); EOSINOPHILS PERCENT AUTO 2.8 % (0.0-6.0); HEMATOCRIT 45.1 % (42.0-52.0); HEMOGLOBIN 15.6 gm/dl (14.0-18.0); IMMATURE GRAN ABSOLUTE AUTO 0.04 K/mm3 (0.00-0.05); IMMATURE GRAN PERCENT AUTO 0.3 % (0.0-0.4); LYMPHOCYTES ABSOLUTE AUTO 1.6 K/mm3 (1.0-4.8); LYMPHOCYTES PERCENT AUTO 13.5 % (24.0-44.0); MEAN CORPUSCULAR HEMOGLOBIN 29.8 pg (28.0-32.0); MEAN CORPUSCULAR HGB CONC 34.6 g/dl (32.0-36.0); MEAN CORPUSCULAR VOLUME 86.1 fl (83.0-99.0); MEAN PLATELET VOLUME 8.9 fl (9.4-12.4); MONOCYTES PERCENT AUTO 8.9 % (0.0-8.0); NEUTROPHILS ABSOLUTE AUTO 8.7 K/mm3 (1.8-7.7); NEUTROPHILS PERCENT AUTO 74.2 % (41.0-71.0); PLATELET COUNT,PLT 252 K/mm3 (150-400); RED BLOOD CELL COUNT 5.24 M/mm3 (4.52-5.90); WHITE BLOOD CELL COUNT,WBC 11.75 K/mm3 (3.9-11.3)
[2023-08-04] MEDS ORDERED: Metoprolol Succinate 50 MG Tab.ER PO ONE (09:48)
[2023-08-04] MEDS: Piperacillin/Tazobactam 4.5 GM in Sodium Chloride 0.9% 100 ML IV SCH ×2 (10:01→19:47)
[2023-08-04] MEDS ORDERED: ceFAZolin 1 GM Vial ONE (10:42)
[2023-08-04] MEDS ORDERED: Bupivacaine 0.5% 30 ML SDV ONE (10:42)
[2023-08-04] MEDS ORDERED: EPINEPHrine 1 MG/ML SDV ONE (10:42)
[2023-08-04] MEDS ORDERED: Rocuronium 50 MG/5 ML Vial ONE (10:44)
[2023-08-04] MEDS ORDERED: Succinylcholine 200 MG/10 ML MDV ONE (11:38)
[2023-08-04] MEDS ORDERED: Midazolam 1 MG/ML 2 ML SDV ONE (11:39)
[2023-08-04] MEDS ORDERED: fentaNYL 250 MCG/5 ML SDV ONE (11:39)
[2023-08-04] MEDS ORDERED: Propofol 200 MG/20 ML SDV ONE (11:39)
[2023-08-04] MEDS ORDERED: Lactated Ringers 1,000 ML ONE (12:09)
[2023-08-04] MEDS ORDERED: Neostigmine Methylsulfate 10 MG/10 ML MDV ONE (12:15)
[2023-08-04] MEDS ORDERED: Ondansetron 4 MG/2 ML SDV ONE (12:22)
[2023-08-04] MEDS ORDERED: dexmedeTOMIDine HCl 200 MCG/2 ML SDV ONE (12:28)
[2023-08-04] MEDS ORDERED: HYDROmorphone 0.5 MG/0.5 ML Syringe IVPUSH PRN ×2 (12:38→12:40)
[2023-08-04] MEDS ORDERED: fentaNYL 100 MCG/2 ML SDV IVPUSH PRN (12:38)
[2023-08-04] MEDS ORDERED: Ketorolac 30 MG/ML SDV IVPUSH PRN (12:40)
[2023-08-04] MEDS ORDERED: Ondansetron 8 MG in Sodium Chloride 0.9% 50 ML IV PRN (12:40)
[2023-08-04] MEDS: Lactated Ringers 1,000 ML IV SCH ×3 (13:42→22:10)
[2023-08-05] MEDS: Piperacillin/Tazobactam 4.5 GM in Sodium Chloride 0.9% 100 ML IV SCH (02:46)
[2023-08-05] MEDS: Lactated Ringers 1,000 ML IV SCH (05:52)
[2023-08-05 09:28] VITALS: BP 142/88; PULSE 100
== END 2023-08-05 10:03 | disposition home or self-care (01) | DRG 399 ==
LOC: JD.ED 22:44 → JD.ICU 08-04 02:58
PROVIDERS: ADMIT Specialist; ATTEND Specialist
PROC: 0DTJ4ZZ Resection of Appendix, Percutaneous Endoscopic Approach (ICD-10-PCS; principal; 2023-08-04 12:00)
DX: K35.80 Unspecified acute appendicitis (principal); K21.9 Gastro-esophageal reflux disease without esophagitis; I10 Essential (primary) hypertension; F90.9 Attention-deficit hyperactivity disorder, unspecified type; Z86.16 Personal history of COVID-19
CPT/HCPCS: 36415; 74177; 74177-26; 80053; 83605; 85025; 86140; 87641; 94762; 99285; A9270-GY; C1713; J0171; J0330; J0690; J2250; J2270; J2405; J2543; J2704; J2710; J3010; J3480; J3490; J7030; J7120; Q9967

== ENCOUNTER 2023-08-08 21:30 | Emergency (ER) | payer BC ==
[2023-08-08] MEDS ORDERED: Sodium Chloride 0.9% 10 ML Syringe FLUSH PRN (22:14)
[2023-08-08] MEDS ORDERED: Iopamidol 612 MG/ML 100 ML Bottle IVPUSH ONE (22:23)
[2023-08-08] MEDS ORDERED: Sodium Chloride 0.9% 10 ML Syringe FLUSH ONE (22:24)
[2023-08-08 22:53] LABS: BASOPHILS ABSOLUTE AUTO 0.1 K/mm3 (0.0-0.2); BASOPHILS PERCENT AUTO 0.5 % (0.0-1.0); EOSINOPHILS ABSOLUTE AUTO 0.4 K/mm3 (0.0-0.4); EOSINOPHILS PERCENT AUTO 2.3 % (0.0-6.0); HEMATOCRIT 49.7 % (42.0-52.0); HEMOGLOBIN 17.5 gm/dl (14.0-18.0); IMMATURE GRAN ABSOLUTE AUTO 0.11 K/mm3 (0.00-0.05); IMMATURE GRAN PERCENT AUTO 0.7 % (0.0-0.4); LYMPHOCYTES ABSOLUTE AUTO 0.8 K/mm3 (1.0-4.8); LYMPHOCYTES PERCENT AUTO 4.8 % (24.0-44.0); MEAN CORPUSCULAR HEMOGLOBIN 29.8 pg (28.0-32.0); MEAN CORPUSCULAR HGB CONC 35.2 g/dl (32.0-36.0); MEAN CORPUSCULAR VOLUME 84.7 fl (83.0-99.0); MEAN PLATELET VOLUME 8.7 fl (9.4-12.4); MONOCYTES ABSOLUTE AUTO 1.1 K/mm3 (0.0-0.8); MONOCYTES PERCENT AUTO 6.7 % (0.0-8.0); NEUTROPHILS ABSOLUTE AUTO 13.5 K/mm3 (1.8-7.7); PLATELET COUNT,PLT 333 K/mm3 (150-400); RED BLOOD CELL COUNT 5.87 M/mm3 (4.52-5.90)
[2023-08-08 23:15] LABS: A/G RATIO 0.9 (1-2); ALBUMIN 3.8 g/dl (3.4-5.0); BILIRUBIN TOTAL 0.5 mg/dL (0.2-1.0); BUN/CREATININE RATIO 10.7 (14-18); C-REACTIVE PROTEIN 0.7 mg/dL (<1.0); CALCIUM 9.4 mg/dL (8.5-10.1); CREATININE 1.4 mg/dL (0.7-1.3); EST CRCL DRUG DOSING (CG) 74.35 mL/min; PROTEIN TOTAL,TP 8.2 g/dl (6.4-8.2)
[2023-08-09] MEDS ORDERED: Dicyclomine 20 MG/2 ML SDV IM ONE (00:48)
[2023-08-09 01:14] LABS: APPEARANCE,URINE CLEAR (Clear); BILIRUBIN,URINE NEGATIVE (Negative); GLUCOSE,URINE NEGATIVE (Negative); KETONES,URINE NEGATIVE (Negative); LEUKOCYTE ESTERASE,URINE NEGATIVE (Negative); NITRITE,URINE NEGATIVE (Negative); OCCULT BLOOD,URINE TRACE-INTACT (Negative); PROTEIN,URINE TRACE (Negative); UROBILINOGEN,URINE 0.2 (0.2-1.0)
[2023-08-09 01:24] LABS: COLOR,URINE YELLOW (Yellow)
[2023-08-09 01:28] LABS: BACTERIA,URINE FEW /hpf (FEW); EPITHELIAL CELLS,URINE NOT SEEN /hpf (0-5); MUCUS,URINE NOT SEEN /hpf (FEW); RBC,URINE 0-5 /hpf (0-5); WBC,URINE 0-5 /hpf (0-5)
[2023-08-09] MEDS ORDERED: Ondansetron 4 MG/2 ML SDV IVPUSH ONE (01:42)
[2023-08-09 03:37] VITALS: BP 124/74; PULSE 74
== END 2023-08-09 03:35 | disposition home or self-care (01) ==
LOC: JD.ED 21:30
DX: A09 Infectious gastroenteritis and colitis, unspecified (principal); I10 Essential (primary) hypertension; Z86.16 Personal history of COVID-19; Z79.899 Other long term (current) drug therapy
CPT/HCPCS: 36415; 74177; 80053; 81001; 83605; 83735; 85025; 86140; 87324; 87493; 96372; 96374; 99284; J0500; J2405; J3490; Q9967

== ENCOUNTER 2024-05-19 09:49 | Emergency (ER) | payer BC ==
[2024-05-19 11:24] LABS: BASOPHILS PERCENT AUTO 0.3 % (0.0-1.0); EOSINOPHILS ABSOLUTE AUTO 0.1 K/mm3 (0.0-0.4); EOSINOPHILS PERCENT AUTO 0.5 % (0.0-6.0); HEMATOCRIT 47.3 % (42.0-52.0); HEMOGLOBIN 16.6 gm/dl (14.0-18.0); IMMATURE GRAN ABSOLUTE AUTO 0.08 K/mm3 (0.00-0.05); IMMATURE GRAN PERCENT AUTO 0.6 % (0.0-0.4); LYMPHOCYTES ABSOLUTE AUTO 0.9 K/mm3 (1.0-4.8); LYMPHOCYTES PERCENT AUTO 6.7 % (24.0-44.0); MEAN CORPUSCULAR HEMOGLOBIN 29.6 pg (28.0-32.0); MEAN CORPUSCULAR HGB CONC 35.1 g/dl (32.0-36.0); MEAN CORPUSCULAR VOLUME 84.3 fl (83.0-99.0); MEAN PLATELET VOLUME 9.1 fl (9.4-12.4); MONOCYTES ABSOLUTE AUTO 0.7 K/mm3 (0.0-0.8); MONOCYTES PERCENT AUTO 5.7 % (0.0-8.0); NEUTROPHILS ABSOLUTE AUTO 11.1 K/mm3 (1.8-7.7); NEUTROPHILS PERCENT AUTO 86.2 % (41.0-71.0); PLATELET COUNT,PLT 331 K/mm3 (150-400); RED BLOOD CELL COUNT 5.61 M/mm3 (4.52-5.90); WHITE BLOOD CELL COUNT,WBC 12.89 K/mm3 (3.9-11.3)
[2024-05-19 11:57] LABS: ALBUMIN 3.7 g/dl (3.4-5.0); ANION GAP 12.9 (5-15); BILIRUBIN TOTAL 0.5 mg/dL (0.2-1.0); BUN/CREATININE RATIO 10.8 (14-18); CALCIUM 8.8 mg/dL (8.5-10.1); CREATININE 1.2 mg/dL (0.7-1.3); EST CRCL DRUG DOSING (CG) 85.92 mL/min; POTASSIUM,K 3.9 mEq/L (3.5-5.1); PROTEIN TOTAL,TP 7.4 g/dl (6.4-8.2); TSH 0.782 uIU/mL (0.358-3.74)
[2024-05-19 13:04] VITALS: BP 158/102; PULSE 89
== END 2024-05-19 13:03 | disposition home or self-care (01) ==
LOC: JD.ED 09:49
DX: L50.9 Urticaria, unspecified (principal); Z86.16 Personal history of COVID-19; Z79.899 Other long term (current) drug therapy
CPT/HCPCS: 36415; 71045; 71045-26; 80053; 84443; 85025; 99283

== ENCOUNTER 2024-05-22 08:53 | Emergency (ER) | payer BC ==
[2024-05-22] MEDS: predniSONE 20 MG Tab PO ONE (09:39)
[2024-05-22 14:56] VITALS: BP 153/106; PULSE 92
== END 2024-05-22 09:49 | disposition home or self-care (01) ==
LOC: JD.ED 08:53
DX: L50.9 Urticaria, unspecified (principal); I10 Essential (primary) hypertension; Z86.16 Personal history of COVID-19
CPT/HCPCS: 99283; J7512